=== PATIENT | male | born 1980 | race Hispanic/Latino ===

== ENCOUNTER → 2022-03-01 | Outpatient (CLI) | payer OTHER | END | disposition home or self-care (01) | LOC: ICE 08:12 | PROVIDERS: ATTEND Hospitalist | DX: U07.1 COVID-19 (principal) | CPT/HCPCS: 87426 ==

== ENCOUNTER 2024-12-12 08:03 | Day surgery (SDC) | payer OTHER ==
[2024-12-12] VITALS (12 sets, daily range): BP systolic 117–139; BP diastolic 66–75; PULSE 60–81; RESP 16–18; TEMP 97.7–98
[~2024-12-12] VITALS: Ht 172.7 cm; Wt 86.6 kg
[2024-12-12 08:48] LABS: BASOPHILS # (AUTO) 0.02 K/uL (0.00-0.20); BASOPHILS % (AUTO) 0.2 % (0.0-5.0); EOSINOPHILS # (AUTO) 0.03 K/uL (0.00-0.70); EOSINOPHILS % (AUTO) 0.3 % (0.0-8.0); HEMATOCRIT 47.1 % (42-54); IMMATURE GRANULOCYTE ABSOLUTE 0.04 K/uL (0-1); LYMPHOCYTES # (AUTO) 1.1 K/uL (1.0-4.8); MEAN CORPUSCULAR VOLUME 88.4 fL (79-99); MONOCYTES # (AUTO) 0.7 K/uL (0.1-1.0); MONOCYTES % (AUTO) 6.3 % (3.0-13.0); NEUTROPHILS # (AUTO) 9.4 K/uL (1.8-7.7); NEUTROPHILS % (AUTO) 82.8 % (40.0-77.0); PLATELET COUNT (AUTO) 302 K/uL (130-400); RED BLOOD CELL COUNT(AUTO) 5.33 MIL/uL (4.50-6.20); RED CELL DISTRIBUTION WIDTH 11.6 % (11.0-15.5); WHITE BLOOD COUNT (AUTO) 11.3 K/uL (4.8-10.8)
[2024-12-12 08:58] LABS: CREATININE 0.9 mg/dL (0.5-1.3); POTASSIUM 4.2 mmol/L (3.5-5.1)
[2024-12-12] MEDS ORDERED: MIDAZOLAM HCL 1 MG/ML 2ML VIAL ONE ×2 (08:59→09:55)
[2024-12-12] MEDS ORDERED: FENTanyl CITRate PF 50 MCG/1 ML 2ML VIAL ONE ×5 (09:24→15:13)
[2024-12-12] MEDS ORDERED: proPOFol 10 MG/ML 20ML VIAL IV ONE (09:24)
[2024-12-12] MEDS ORDERED: ondanSETRON 4MG INJ ONE ×2 (09:24→14:51)
[2024-12-12] MEDS ORDERED: rocuRONium bROMide 10MG/1ML 5ML VL ONE ×2 (09:24→14:24)
[2024-12-12] MEDS ORDERED: CALDOLOR 800MG+NS 250ML 250 ML IV ONE (09:33)
[2024-12-12] MEDS ORDERED: acetaMINOPHEN 100 ML ONE (09:34)
[2024-12-12] MEDS ORDERED: ROPivacaine 0.5% 5MG/ML 30ML ONE (09:44)
[2024-12-12] MEDS ORDERED: dexaMETHasone SOD PHOSPHATE 10MG/ML 1ML VIAL ONE (09:45)
[2024-12-12] MEDS ORDERED: dexaMETHasone SOD PHOSPHATE 4 MG/ML 1ML VIAL ONE (09:45)
[2024-12-12] MEDS ORDERED: LIDOCAINE 1%-EPI 1:100,000 20 ML VIAL ONE (09:45)
[2024-12-12] MEDS: ceFAZolin SODIUM 2 GM VIAL ONE (09:47)
[2024-12-12] MEDS: LACTATED RINGERS 1000ML 1,000 ML IV ONE (09:47)
[2024-12-12] MEDS ORDERED: phenylEPHRINE HCL 10 MG/ML 1ML VIAL IV ONE (13:12)
[2024-12-12] MEDS ORDERED: GLYCOPYRROLATE 0.2 MG/ML 5 ML VIAL ONE (13:27)
[2024-12-12] MEDS ORDERED: NEOSTIGMINE METHYLSULFATE 1MG/ML IV ONE (14:37)
--- NOTE | 2024-12-12 16:15 | NUR ---
Order received for crutch training post op Ankle ORIF. Crutch training completed with good verbal return and return demo's. Pt spouse at bedside and educated on proper donning of gait belt. Pt encouraged to ambulated with 3 point gait and step-to gait. Primary RN notified. Addendum: 12/12/24 at 1636 by MOON ESQUIVEL PT PT Amended: Links added.
--- NOTE | 2024-12-12 16:29 | NUR ---
Full and complete discharge instructions given to Patient and Family both verbally and in writing. Explained SURGICAL procedure precautions and follow up. Neurovascularly intact with block remaining effective. Drsg jacob wrap intact. Full instructions on crutch training from PT. at side appearing supportive. Voiced understanding on discharge instructions and after care. All questions answered. PIV removed with catheter tip intact. Home with Family W/C to POV. Addendum: 12/12/24 at 1651 by THUY PENA RN RN Voided large amount of urine pre discharge.
--- NOTE | 2024-12-12 17:15 | HMCIMG ---
ANKLE COMP 3VWS RT HISTORY: ORIF of right ankle COMPARISON: None TECHNIQUE: Fluoroscopic images were obtained. FINDINGS: Please see procedure report by the referring physician. IMPRESSION: 1. Findings as described above.
--- NOTE | 2024-12-12 18:20 | OP ---
Operative Note: DATE OF PROCEDURE: 12/12/24 SURGEON: HUSSEIN CORTÉS MD DATA VIRTUALIZATION CONSULTANT: Abraham Avalos ANESTHESIA: General with fem-pop block ANESTHESIOLOGIST/INCIDENT RESPONSE ANALYST: Shaquille Becker CRNA PREOPERATIVE DIAGNOSIS: Right trimalleolar ankle fracture POSTOPERATIVE DIAGNOSIS: Right trimalleolar ankle fracture PROCEDURE: Open reduction internal fixation right medial and lateral malleolus of trimalleolar ankle fracture ESTIMATED BLOOD LOSS: 5 cc INDICATIONS: 44-year-old male status post ground level fall with a twisting injury of his right ankle. Patient presented to our clinic acutely after his injury where x-rays revealed a trimalleolar right ankle fracture. He was reduced and splinted in our clinic. We discussed the risks, benefits, and alternatives to undergoing operative fixation of his ankle fracture and he voluntarily agreed to proceed with the aforementioned procedure. DESCRIPTION OF PROCEDURE: Patient was properly identified in the preoperative holding area. Surgical site marking was verified and surgery consent reviewed. The patient was then taken to the operating room and placed in supine position on the OR table. After induction of general anesthesia, preoperative antibiotics were given, all bony prominences were well-padded, and a well padded tourniquet was applied but not inflated at this time. The right lower extremity was then prepped and draped in usual sterile fashion. Surgical timeout was done verifying correct surgery, side, site, and location to be performed. We then began the procedure by exsanguinating the limb using Esmarch and inflating the tourniquet to 350 mmHg. We then used a 15 blade to make approximately 10 cm long incision directly over the lateral malleolus centered over the fracture site. We came sharply through the skin dissected carefully through the subcutaneous tissue and identified the subcutaneous border of the fibula. We cut down sharply onto the fibula using a 15 blade. We then used our periosteal elevator to elevate soft tissue off of the bone both in the proximal and distal direction as well as anterior and posterior direction. We identified the fracture site. The fracture site was then distracted and interposed soft tissue and hematoma was debrided using a curette. We then achieved our fracture reduction using a lion-jaw clamp and held our reduction with a [id number] reduction clamp. This was then visualized under AP and mortise fluoroscopic views and found to be appropriately reduced with fibula out to length. We then selected a plate and contoured it. This was then reduced to the bone using 3.5 cortical screws proximal and distal to the fracture site. We verified under fluoroscopic views of the the hardware was in appropriate position and fracture reduction maintained. The bone appeared to have good quality with the placement of these two screws so we elected to go ahead and fire a lag screw across the fracture site. This was done using lag by technique in standard fashion. We then began to drill and fill to screw holes above and below the fracture site with 3.5 locking screws. This was done in standard fashion. At this point we focused our attention on the medial malleolus where we made an approximately 6 cm long incision. We then dissected carefully through the s ubcutaneous tissue. We then identified our fracture site and cleaned surrounding periosteum and other soft tissue as well as hematoma from within the fracture site. We then made a drill hole in the proximal fracture fragment. Reduction was obtained using a dental pick and held using a rvuga-fw-yyver reduction clamp. This was then verified to be reduced under AP and mortise fluor oscopic views. We then placed our 2 guidepins for cancellus screws and verified these to be appropriate position under AP lateral and mortise fluoroscopic views. We then drilled and filled over the screws in standard fashion. Once we had this hardware in place we then removed the guidewires and the reduction clamp. We performed a live cotton test under fluoroscopy and found the syndesmosis to be stable. We then obtained our final AP mortise and lateral fluoroscopic views. These were saved to the PACS system and they were interpreted by me. We then thoroughly irrigated out the wound with normal saline and began to repair the subcutaneous tissue using a 2-0 Vicryl. Running 3-0 Monocryl in subcuticular fashion with Dermabond applied over this was used to close the skin. Sterile dressing with a posterior splint with a U was then applied. Tourniquet was then deflated. Patient was awakened from anesthesia and taken to the recovery room in stable condition. HUSSEIN CORTSÉ MD Dec 12, 2024 18:20
--- NOTE | 2024-12-13 16:24 | HMCIMG ---
C ARM USAGE REASON: ORIF RIGHT ANKLE FX,SX. COMPARISON: None TECHNIQUE: Fluoroscopic usage for right arm surgery. FINDINGS: Please see procedure report by referring physician. IMPRESSION: Intraoperative films.
== END 2024-12-12 16:45 | disposition home or self-care (01) ==
LOC: DAH 08:03
PROVIDERS: ATTEND Student in an Organized Health Care Education/Training Program
DX: S82.851A Displaced trimalleolar fracture of right lower leg, initial encounter for closed fracture (principal); M25.571 Pain in right ankle and joints of right foot; Z98.890 Other specified postprocedural states; W01.0XXA Fall on same level from slipping, tripping and stumbling without subsequent striking against object, initial encounter; Y93.89 Activity, other specified; Y92.090 Kitchen in other non-institutional residence as the place of occurrence of the external cause; Y99.8 Other external cause status
CPT/HCPCS: 36415; 73610; 80048; 85025; J1100; J1741; J2250; J2371; J2405; J2704; J2710; J2795; J3010; J3490; J7120; A4213; A4215; A4216; A4221; A4222; A4223; A4649; A4663; A4930; A5120; A6223; A6450; C1713; J0690; Q4050

== ENCOUNTER 2025-07-11 13:41 | Emergency (ER) | payer OTHER ==
[~2025-07-11] VITALS: Ht 170.2 cm; Wt 88.5 kg
--- NOTE | 2025-07-11 13:48 | ERN ---
ED Note History of Present Illness Stated Complaint: SCROTAL SWELLING Chief Complaint: Testicular Injury/Pain Time Seen by MD: 13:42 Dictation: PATIENT IS A 45-YEAR-OLD MALE COMING IN TODAY WITH COMPLAINTS OF LEFT TESTICULAR PAIN SWELLING ONSET WAS TUESDAY OF THIS WEEK. NO FEVER NO CHILLS NO NAUSEA VOMITING. HE HAS HAD NO FEVER NO CHANGE IN URINATION. HE HAS A SURGICAL NURSE IN HIS HERE WITH DR.Dr Roca. Allergies: Coded Allergies: No Known Drug Allergies (Unverified Allergy, Unknown, 12/12/24) Home Meds No Active Prescriptions or Reported Meds Past Medical History RN Note Reviewed/Agreed w/PFSH: Yes Review of System Dictation CONSTITUTIONAL: Negative except for HPI HEAD/FACE: Negative except for HPI EENT: Negative except for HPI RESPIRATORY: Negative except for HPI GASTROINTESTINAL/ABDOMINAL: Negative except for HPI GENITOURINARY: Negative except for HP l right testicular pain swelling since Tuesday MUSCULOSKELETAL: Negative except for HPI INTEGUMENTARY: Negative except for HPI NEUROLOGICAL/PSYCH: Negative except for HPI HEMATOLOGIC/LYMPHATIC: Negative except for HPI All Systems Negative, Except as noted above. 13 point review of systems assessed and all negative except for above. Initial Vital Sign VS Vital Signs Date Time Temp Pulse Resp B/P (MAP) Pulse Ox O2 Delivery O2 Flow Rate FiO2 07/11/25 13:42 97.3 109 20 141/90 100 07/11/25 14:14 Room Air* 0 21 Physical Exam Dictation Vital Signs reviewed General Appearance: Alert, oriented x 3, no acute distress, well developed, nourished. No pain at this time. Head and Face: non-traumatic. Eyes: PERRL, pink conjunctivas, eyelid no trauma, anterior chamber with arcus senilis. Ears: Pinnas intact and no signs of trauma or erythema ear canals clear and no discharge TM no erythema Nose: No discharge, no bleeding. Oropharynx: Mouth normal, tongue pink, pharynx clear,no erythema, tonsils no exudates, no abscesses noted, mucous membrane moist Neck: Supple, non-tender, no thyromegaly, no masses, no JVD, no bruits Breast:Deferred Chest:No tenderness, no crepitus, no paradoxical movement, no retractions Lungs:Clear, well-ventilated, symmetric, no rales, no wheezing, no rhonchi, no stridor, good breath sounds bilaterally Heart: Regular rate, regular rhythm, no murmur, no gallops Vascular: no peripheral edema, Abdomen: Soft, positive bowel sounds, nondistended, no guarding, nontender, no rebound, no masses no hepatomegaly, no splenomegaly, no Mac's sign, no hernias. Rectal: Deferred Genital: Deferred Neurological: Normal speech, motor function intact, sensory function intact Musculoskeletal: Neck nontender, full range of motion, back nontender, full range of motion, Extremities: nontender, full range of motion Skin: Color pink, dry, no turgor, no rash, no lacerations, no abrasions, no contusions. Lymphatic: Deferred Results (Laboratory/Radiology) Laboratory/Radiology 1445/SCROTAL ULTRASOUND DEMONSTRATES BLOOD FLOW TO BOTH TESTES. 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 1500/SPOKE WITH AND REVIEWED ULTRASOUND REPORT. HE IS AWARE THE OFFICIAL REPORT HAS NOT BEEN RENDERED BY [facility] HE SAID SEND PATIENT HOME AND PATIENT IS GOING TO FOLLOW UP WITH HE DID CALL HIM WITH THE FORMAL REPORT Labs Reviewed?: Yes ED Course ED Course Orders Procedure Category Date Status Time Us Scrotum & Contents US 07/11/25 Taken 13:43 Vital Signs Date Time Temp Pulse Resp B/P (MAP) Pulse Ox O2 Delivery O2 Flow Rate FiO2 07/11/25 14:14 97.3 94 18 122/90 99 Room Air* 0 21 07/11/25 13:42 97.3 109 20 141/90 100 1350/patient is refusing labs at this time says he just not need an IV ear pain management He just wants the ultrasound of the scrotum and results called to the surgeon.1 1445/SPOKE WITH DARELL AT [facility]. I EXPLAINED TO HER I NEED A STAT READ ON THE SCROTAL ULTRASOUND FOR A SURGEON AND SHE SAID SHE WOULD HAVE IT EXPEDITED. Medical Decision Making MDM MEDICAL DECISION-MAKING BASED ON ULTRASOUND OF RIGHT SCROTUM AND PATIENT HAS A PROBABLE PYOCELE. WE WILL SEND PATIENT HOME WITH CEFDINIR AND FLAGYL HE WILL BE SEEING /UROLOGY IN THE NEXT TWO DAYS. DX & DISP Disposition: Discharge Departure Impression: Primary Impression: Pyocele Additional Impression: Right testicular pain Condition: Stable Scripts Cefdinir (Cefdinir) 300 Mg Capsule 1 CAP PO BID for 7 Days, #14 CAP 0 Refills Prov: VINNYLELOKUSUM CROOKS 07/11/25 Metronidazole (Metronidazole) 500 Mg Tablet 1 TAB PO TID for 7 Days, #21 TAB 0 Refills Prov: MARIELKUSUM CROOKS 07/11/25 Additional Instructions: FOLLOW-UP WITH PRIMARY CARE PROVIDER IN 1 TO 2 DAYS. TAKE MEDICATIONS DIRECTED HERE IN THE EMERGENCY ROOM. OKAY TO CONTINUE HOME MEDICATIONS UNLESS OTHERWISE DISCUSSED DURING YOUR VISIT IN THE EMERGENCY ROOM TODAY. RETURN TO YOUR NEAREST EMERGENCY ROOM IF SYMPTOMS WORSEN OR IF THERE IS NO IMPROVEMENT. CALL 911 IF YOU NEED IMMEDIATE ASSISTANCE. TAKE TYLENOL OR MOTRIN [id number] NEEDED AND IF NO CONTRAINDICATIONS ARE PRESENT. INCREASE ORAL HYDRATION. A WOUND CULTURE OR URINE CULTURE WAS ORDERED HERE IN THE EMERGENCY ROOM DEPARTMENT PLEASE FOLLOW-UP WITH PRIMARY CARE PROVIDER AND ADVISE THEM TO GET REPEAT PORTS FROM OUR FACILITY. IF YOU HAD ANY ALECIA WRAP/SPLINTS THAT WERE APPLIED HERE, PLEASE DO NOT REMOVE THEM UNTIL YOU SEE YOUR PRIMARY CARE OR SPECIALTY. TAKE ANTIBIOTICS DIRECTED UNTIL GONE. FOLLOW UP WITH THE YOUR UROLOGIST IN THE NEXT ONE TWO DAYS. Referrals: NONE (PCP) TERRI MONTOYA MD Time of Disposition: 15:09 I have reviewed the case, and I agree with, Diagnosis and Plan MARIELKUSUM CROOKS Jul 11, 2025 13:48
--- NOTE | 2025-07-11 14:19 | NUR ---
US AT BEDSIDE
[2025-07-11] MEDS ORDERED: CEFD300C3 PO (15:10)
[2025-07-11] MEDS ORDERED: METR-172 PO (15:10)
--- NOTE | 2025-07-11 15:16 | HMCIMG ---
EXAM: US Scrotum. CLINICAL HISTORY: Right testicular pain and swelling since Tuesday. TECHNIQUE: Real-time ultrasound of the scrotum with grayscale and color Doppler imaging and image documentation. COMPARISON: None provided. FINDINGS: RIGHT TESTICLE: The right testis measures approximately 4.1 x 2.9 x 3.4 cm and is homogeneous in echotexture with preserved contours. Intratesticular vascularity is present and mildly increased on color Doppler, without focal intratesticular mass or focal area of absent flow. RIGHT EPIDIDYMIS AND SCROTAL WALL: The right epididymal head measures approximately 11 x 7 mm and shows increased vascularity. A small simple-appearing cystic lesion in the right epididymal head measures approximately 2 x 2 x 2 mm, consistent with a tiny epididymal cyst. The scrotal wall on the right is thickened and edematous with a ???cobblestone??? appearance. A normal-appearing appendix testis is noted. RIGHT HYDROCELE: There is a large right-sided hydrocele with internal low-level echoes and debris, in keeping with a complex hydrocele, most suggestive of infected hydrocele or early pyocele in this clinical context. LEFT TESTICLE: The left testis measures approximately 3.9 x 1.9 x 2.2 cm and shows homogeneous normal echotexture with normal intratesticular vascularity. No focal intratesticular lesion is identified. LEFT EPIDIDYMIS: The left epididymis measures approximately 10 x 8.5 x 4 mm and is normal in echotexture and vascularity. No epididymal mass or cyst is seen. OTHER: No varicocele is identified. No inguinoscrotal hernia or extratesticular solid mass is seen. IMPRESSION: * Findings on the right including increased vascularity of the right epididymis and right testis, scrotal wall edema with cobblestone appearance, and a large complex right hydrocele with internal echoes are most consistent with acute right epididymo-orchitis with associated infected hydrocele/early pyocele. * Tiny right epididymal head cyst. * Normal left testis and epididymis. /[place]
[2025-07-11 15:27] VITALS: BP 120/85; PULSE 9; RESP 18; TEMP 97.3; O2SAT 99
== END 2025-07-11 15:40 | disposition home or self-care (01) ==
LOC: EDH 13:41
DX: N34.0 Urethral abscess (principal); N50.812 Left testicular pain
CPT/HCPCS: 99285; 76870; 96372; J0696

== ENCOUNTER → 2025-07-17 | Outpatient (CLI) | payer OTHER ==
[~2025-07-17] MED LIST: CEFD300C3 PO; IOHEXOL-350 75 ML VIAL IV ONE; METR-172 PO
[2025-07-17 13:11] LABS: IMMATURE GRANULOCYTE ABSOLUTE 0.14 K/uL (0-1); NUCLEATED RED BLOOD CELLS 0.0 % (0.0-0.19); RED BLOOD CELL COUNT(AUTO) 4.65 MIL/uL (4.50-6.20); RED CELL DISTRIBUTION WIDTH 11.9 % (11.0-15.5); WHITE BLOOD COUNT (AUTO) 12.0 K/uL (4.8-10.8)
[2025-07-17 13:23] LABS: CREATININE 0.9 mg/dL (0.5-1.3); GLOMERULAR FILTR. RATE CALC 109.0 mL/min (>90); GLUCOSE,RANDOM 107.0 mg/dL (70-105); SODIUM SERUM 142.0 mmol/L (136-145); UREA NITROGEN, BLOOD 7.0 mg/dL (7-18)
[2025-07-17 13:26] LABS: PLATELET COUNT (AUTO) 708 K/uL (130-400)
--- NOTE | 2025-07-17 15:00 | HMCIMG ---
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 CONTRAST: with and without intravenous contrast. COMPARISON: None provided. FINDINGS: LUNG BASES: The lung bases appear clear. No pleural effusions are seen. LIVER: There are 4 subcentimeter hypoattenuating hepatic cystic structures. GALLBLADDER AND BILE DUCTS: The gallbladder appears within normal limits. No radioopaque gallstones are seen. No biliary ductal dilatation is evident. PANCREAS: Unremarkable. SPLEEN: Unremarkable. ADRENAL GLANDS: Unremarkable. KIDNEYS, URETERS, AND BLADDER: The kidneys appear within normal limits. There is no hydronephrosis or hydroureter. No urinary calculi are seen. STOMACH AND BOWEL: There is mild colonic diverticulosis involving the junction of the descending and sigmoid colon. There is mild to moderate edema within the mesentery adjacent to the proximal sigmoid colon. There are a few gas bubbles within the adjacent mesentery. Within the deep pelvis there is a rim-enhancing small fluid collection measuring 2.9 x 1.5 cm. No bowel obstruction. APPENDIX: No evidence of acute appendicitis on CT examination. PERITONEUM: No free fluid. LYMPH NODES: No lymphadenopathy is evident. REPRODUCTIVE: Unremarkable as visualized. VASCULATURE: No evidence of abdominal aortic aneurysm. BONES: No aggressive appearing osseous lesion. No acute osseous pathology evident. IMPRESSION: 1. Small rim-enhancing fluid collection in deep pelvis measuring 2.9 x 1.5 cm, with adjacent mesenteric edema and gas bubbles, concerning for small abscess from perforated acute diverticulitis . 2. Mild colonic diverticulosis at the descending-sigmoid junction. 3. Four subcentimeter hepatic cysts. /[place]
== END | disposition home or self-care (01) ==
LOC: RAH 12:50
PROVIDERS: ATTEND Urology
DX: D17.6 Benign lipomatous neoplasm of spermatic cord (principal); K57.30 Diverticulosis of large intestine without perforation or abscess without bleeding; K76.89 Other specified diseases of liver; R18.8 Other ascites
CPT/HCPCS: 74178; 80048; 85025; 36415; Q9967